=== PATIENT | female | born 1990 | race Hispanic/Latino ===

== ENCOUNTER 2020-11-27 17:02 | Emergency (ER) | payer OTHER, SELFPAY ==
[2020-11-27 18:50] LABS: Hematocrit 39.6 % (36.0-45.0); RBC Red Blood Cell Count 4.46 M/uL (3.86-4.86)
[2020-11-27 18:51] LABS: Absolute Lymphocytes (CBC) 2.9 K/uL (0.7-4.9); Lymphocytes % 32.2 % (15.3-44.8); MPV 8.7 fL (7.6-11.3)
--- NOTE | 2020-11-27 19:22 | RAD REPORT ---
EXAM DESCRIPTION: US - 1St Trimest Single 1St Fetus - 11/27/2020 7:06 pm CLINICAL HISTORY: with vaginal bleeding COMPARISON: None. FINDINGS: The uterus measures 11 x 7 x 6 centimeters. The endometrium is thickened and heterogeneous. A gestational sac is not seen. A pole is not de monstrated. The endometrial stripe measures 3.4 centimeters. Neither ovary seen secondary to overlying bowel gas. The right and left at adnexa unremarkable. No significant free fluid IMPRESSION: These findings most likely represent an incomplete
[2020-11-27 19:26] LABS: BUN Blood Urea Nitrogen 10 mg/dL (7-18); Bicarbonate 24 mmol/L (21-32); Glucose Level 91 mg/dL (74-106); HCG, Quantitative 1500 mIU/mL (1-3); Potassium 3.6 mmol/L (3.5-5.1); Sodium Level 140 mmol/L (136-145)
[2020-11-27] MEDS ORDERED: ONDANSETRON 4 MG/2 ML VIAL ONE (19:27)
[2020-11-27] MEDS ORDERED: MORPHINE 4 MG/ML SYR ONE (19:27)
--- NOTE | 2020-11-27 20:27 | EDPHYS ---
Physician Documentation [facility] Name: Bayron Langston Age: 30 yrs Sex: Female : 1990 Arrival Date: 11/27/2020 Time: 17:11 Bed 17 Private MD: ED Physician Nik Mccurdy HPI: 11/27 18:21 This 30 yrs old Female presents to ER via Ambulatory with complaints of jmm Vaginal Bleeding, 10 wks , Abdominal Pain. 18:21 The patient presents with vaginal bleeding that is. Onset: The symptoms/episode jmm began/occurred gradually, 2 day(s) ago. Modifying factors: The symptoms are alleviated by nothing, the symptoms are aggravated by nothing. Associated signs and symptoms: Pertinent positives: vaginal bleeding. The patient has not experienced similar symptoms in the past. 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 - Social history:: Smoking status: Patient denies any tobacco usage or history of. ROS: 19:30 Constitutional: Negative for fever, chills, and weight loss, Eyes: Negative for injury, jmm pain, redness, and discharge, Cardiovascular: Negative for chest pain, palpitations, and edema, Respiratory: Negative for shortness of breath, cough, wheezing, and pleuritic chest pain, Abdomen/GI: Negative for abdominal pain, nausea, vomiting, diarrhea, and constipation. 19:30 : Positive for pelvic pain, vaginal bleeding. 19:30 All other systems are negative. Exam: 19:30 Constitutional: This is a well developed, well nourished patient who is awake, alert, jmm and in no acute distress. Head/Face: atraumatic. Eyes: EOMI, no conjunctival erythema appreciated ENT: Moist Mucus Membranes Neck: Trachea midline, Supple Chest/axilla: Normal chest wall appearance and motion. Cardiovascular: Regular rate and rhythm. No edema appreciated Respiratory: Normal respirations, no respiratory distress appreciated Abdomen/GI: Non distended, soft Back: Normal ROM Skin: General appearance color normal MS/ Extremity: Moves all extremities, no obvious deformities appreciated, no edema noted to the lower extremities Neuro: Awake and alert, normal gait Psych: Behavior is normal, Mood is normal, Patient is cooperative and pleasant Vital Signs: 17:36 BP 139 / 87; Pulse 82; Resp 18; Temp 98.4(O); Pulse Ox 100% on R/A; Weight 63.5 kg; em Height 5 ft. 2 in. (157.48 cm); Pain 10/10; 18:32 BP 135 / 86; Pulse 79; Resp 18; Pulse Ox 99% on R/A; Pain 7/10; ld1 19:20 BP 126 / 89; Pulse 75; Resp 18; Pulse Ox 100% ; rr5 20:35 BP 131 / 75; Pulse 70; Resp 16; Pulse Ox 98% ; rr5 17:36 Body Mass Index 25.61 (63.50 kg, 157.48 cm) em MDM: 18:37 Patient medically screened. [facility] 19:31 Data reviewed: vital signs, nurses notes. Counseling: I had a detailed discussion with siomara the patient and/or guardian regarding: the historical points, exam findings, and any diagnostic results supporting the discharge/admit diagnosis, radiology results, the need for outpatient follow up, to return to the emergency department if symptoms worsen or persist or if there are any questions or concerns that arise at home. ED course: Patient passed POC while in the ED. US revealed no IUP. Patient advised to follow up with ob for incomplete . patient otherwise given strict return precautions. patient understood and agrees with the plan of care. . 11/27 18:21 Order name: Quantitative Hcg; Complete Time: 19:29 [facility] 11/27 18:21 Order name: Abo/rh Typing; Complete Time: 19: [facility] 11/27 18:21 Order name: Basic Metabolic Panel; Complete Time: 19:29 [facility] 11/27 18:21 Order name: CBC with Diff; Complete Time: 19:07 [facility] 11/27 18:22 Order name: US 1st Trimest Single 1st Fetus; Complete Time: 19:23 [facility] 11/27 18:21 Order name: IV Saline Lock; Complete Time: 18:39 [facility] 11/27 18:21 Order name: Labs collected and sent; Complete Time: 18:39 [facility] 11/27 18:21 Order name: NPO; Complete Time: 18:27 [facility] Administered Medications: 19:12 Drug: Zofran (Ondansetron) 4 mg Route: IVP; Site: right antecubital; rr5 20:10 Follow up: Response: No adverse reaction rr5 19:15 Drug: morphine 4 mg {Note: rass 0.} Route: IVP; Site: right antecubital; rr5 20:15 Follow up: Response: No adverse reaction; RASS: Alert and Calm (0) rr5 Disposition: 11/27/20 20:27 Discharged to Home. Impression: Incomplete spontaneous without complication. - Condition is Stable. - Discharge Instructions: Incomplete Miscarriage. - Medication Reconciliation Form, Thank You Letter, Antibiotic Education, Prescription Opioid Use, Work release form, Family Work Release form. - Follow up: Private Physician; When: Tomorrow; Reason: Recheck today's complaints, Continuance of care, Re-evaluation by your physician. Addendum: 11/29/2020 06:39 Co-signature as Attending Physician, Nik Mccurdy MD I agree with the assessment and t w4 plan of care. Signatures: Dispatcher [employer] Demetrio Orantes PA PA jmm Munoz, Edgar, RN RN Nik Lancaster MD MD tw4 Frandy Harrison, RN RN rr5 Corrections: (The following items were deleted from the chart) 11/27 20:54 20:27 11/27/2020 20:27 Discharged to Home. Impression: Incomplete spontaneous rr5 without complication. Condition is Stable. Forms are Medication Reconciliation Form, Thank You Letter, Antibiotic Education, Prescription Opioid Use. Follow up: Private Physician; When: Tomorrow; Reason: Recheck today's complaints, Continuance of care, Re-evaluation by your physician. [facility]
--- NOTE | 2020-11-27 20:27 | ER ---
Nurse's Notes [facility] Name: Bayron Langston Age: 30 yrs Sex: Female : 1990 Arrival Date: 11/27/2020 Time: 17:11 Bed 17 Private MD: Diagnosis: Incomplete spontaneous without complication Presentation: 11/27 17:36 Chief complaint: Patient states: started bleeding 2 days ago with brown blood and now em is bright red, reports being 10 weeks , G4 PA, denies burning with urination, N/V or fever. Coronavirus screen: Client denies travel out of the [place] in the last 14 days. Ebola Screen: Patient negative for fever greater than or equal to 101.5 degrees Fahrenheit, and additional compatible Ebola Virus Disease symptoms Patient denies exposure to infectious person. Patient denies travel to an Ebola-affected area in the 21 days before illness onset. No symptoms or risks identified at this time. Initial Sepsis Screen: Does the patient meet any 2 criteria? No. Patient's initial sepsis screen is negative. Does the patient have a suspected source of infection? No. Patient's initial sepsis screen is negative. Risk Assessment: Do you want to hurt yourself or someone else? Patient reports no desire to harm self or others. Onset of symptoms was November 27, 2020. 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 - Social history:: Smoking status: Patient denies any tobacco usage or history of. Screenin:32 Abuse screen: Denies threats or abuse. Denies injuries from another. Nutritional ld1 screening: No deficits noted. Tuberculosis screening: No symptoms or risk factors identified. Fall Risk IV access (20 points). Assessment: 18:32 General: Appears in no apparent distress. uncomfortable, Behavior is calm, cooperative, ld1 appropriate for age. Pain: Complains of pain in suprapubic area, right lower quadrant and left lower quadrant Pain currently is 7 out of 10 on a pain scale. at worst was 10 out of 10 on a pain scale. Quality of pain is described as burning, stabbing, Pain began 1 day ago. Is continuous. Neuro: Level of Consciousness is awake, alert, obeys commands, Oriented to person, place, time, situation, Appropriate for age. Cardiovascular: Capillary refill < 3 seconds Patient's skin is warm and dry. Respiratory: Airway is patent Respiratory effort is even, unlabored, Respiratory pattern is regular, symmetrical. GI: Abdomen is flat, non-distended, Bowel sounds present X 4 quads. Abd is soft in right lower quadrant and left lower quadrant Abdomen is tender to palpation X 4 quads. Reports lower abdominal pain, cramping, Pain is 7 out of 10 on a pain scale. : vaginal bleeding Reports vaginal bleeding that is bright red. EENT: No deficits noted. Derm: No deficits noted. Musculoskeletal: No deficits noted. 18:35 Reassessment: Patient provided urine sample, products of conception were found and ld1 collected in bathroom toilet. Collection will be sent to pathology per MD request. 19:15 Reassessment: Patient appears in no apparent distress at this time. Patient is alert, rr5 oriented x 3, equal unlabored respirations, skin warm/dry/pink. provider at bedside assessing the patient, complaints of pain with order made and carried out. 20:35 Reassessment: Patient appears in no apparent distress at this time. Patient is alert, rr5 oriented x 3, equal unlabored respirations, skin warm/dry/pink. discharge instruction given and explained without complaints made. Vital Signs: 17:36 BP 139 / 87; Pulse 82; Resp 18; Temp 98.4(O); Pulse Ox 100% on R/A; Weight 63.5 kg; em Height 5 ft. 2 in. (157.48 cm); Pain 10/10; 18:32 BP 135 / 86; Pulse 79; Resp 18; Pulse Ox 99% on R/A; Pain 7/10; ld1 19:20 BP 126 / 89; Pulse 75; Resp 18; Pulse Ox 100% ; rr5 20:35 BP 131 / 75; Pulse 70; Resp 16; Pulse Ox 98% ; rr5 17:36 Body Mass Index 25.61 (63.50 kg, 157.48 cm) em ED Course: 17:11 Patient arrived in ED. mr 17:38 Triage completed. em 17:39 Arm band placed on. em 18:21 Demetrio Roberts PA is PHCP. [facility] 18:21 Nik Mccurdy MD is Attending Physician. [facility] 18:26 Paulina Modi, RN is Primary Nurse. ld1 18:32 Patient has correct armband on for positive identification. Placed in gown. Bed in low ld1 position. Call light in reach. Side rails up X 1. Pulse ox on. NIBP on. Door closed. Noise minimized. Warm blanket given. 18:32 No provider procedures requiring assistance completed. ld1 19:06 US 1st Trimest Single 1st Fetus In Process Unspecified. EDMS 19:14 Primary Nurse role handed off by Paulina Modi, RN mw2 20:32 Frandy Harrison, JAMEY is Primary Nurse. rr5 20:35 IV discontinued, intact, bleeding controlled, No redness/swelling at site. Pressure rr5 dressing applied. Administered Medications: 19:12 Drug: Zofran (Ondansetron) 4 mg Route: IVP; Site: right antecubital; rr5 20:10 Follow up: Response: No adverse reaction rr5 19:15 Drug: morphine 4 mg {Note: rass 0.} Route: IVP; Site: right antecubital; rr5 20:15 Follow up: Response: No adverse reaction; RASS: Alert and Calm (0) rr5 Outcome: 20:27 Discharge ordered by . [facility] 20:54 Patient left the ED. rr5 Signatures: Dispatcher [employer] EDNY Demetrio Roberts PA PA jmm Rivera, Mary mr CarterMike, RN RN MerrillObed 2 Frandy Harrison, RN RN rr5 Paulina Modi, JAMEY RN ld1
[2020-11-27 21:01] VITALS: TEMP 98.4
[2020-11-27 21:06] VITALS: BP 131/75; O2SAT 98
== END 2020-11-27 20:54 | disposition home or self-care (01) ==
LOC: ER 17:02
DX: O03.4 Incomplete spontaneous abortion without complication (principal)
CPT/HCPCS: 36415; 76801; 80048; 84702; 85025; 86900; 86901; 88305; 96374; 96375; 99283; J2405